=== PATIENT | male | born 2000 | race Caucasian/White ===

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

== ENCOUNTER → 2021-03-02 14:10 | Outpatient (CLI) | payer MEDICAID, SELFPAY ==
--- NOTE | 2021-03-02 14:17 | RAD_ITS ---
STUDY: X-RAY - RIGHT FOOT CLINICAL: Male, 20 years old. PAIN TECHNIQUE: 3 view(s) of the foot. COMPARISON: None. FINDINGS: Operative changes of the calcaneus with surgical implant. Normal visualized subtalar, talonavicular, calcaneocuboid, tarsal and tarsometatarsal articulations. Normal metatarsi. Normal metatarsophalangeal joint of the great toe. Normal tibial and fibular sesamoid bones. Normal interphalangeal joint of the great toe. Normal phalanges of the great toe. Normal second through fifth metatarsophalangeal joints. Normal interphalangeal joints and phalanges of the lesser toes. The soft tissue structures are unremarkable. RAD/Foot min 3 Views IMPRESSION: Operative changes of the calcaneus. No destructive bony process. Electronically Signed: Ramiro Wiseman MD ([place]) at 15:07 EDT , Service support ,
--- NOTE | 2021-03-02 14:17 | RAD_ITS ---
STUDY: X-RAY - RIGHT ANKLE REASON FOR EXAM: Male, 20 years old. PAIN TECHNIQUE: 3 view(s) of the ankle. COMPARISON: None. FINDINGS: Normal visualized distal tibia and fibula. Normal medial and lateral malleoli. Normal tibiotalar articulation and ankle mortise. Operative implant/changes of the calcaneus. The visualized subtalar, talonavicular, calcaneocuboid and tarsal articulations are normal. The soft tissue structures are unremarkable. RAD/Ankle min 3 Views IMPRESSION: Operative changes of the calcaneus. No destructive bony process. Electronically Signed: Ramiro Wiseman MD ([place]) at 16:34 EDT , Service support ,
--- NOTE | 2021-03-02 14:17 | RAD_ITS ---
STUDY: X-RAY - LEFT FOOT CLINICAL: Male, 20 years old. PAIN TECHNIQUE: 3 view(s) of the foot. COMPARISON: None. FINDINGS: Operative changes of the calcaneus with surgical implant. Normal visualized subtalar, talonavicular, calcaneocuboid, tarsal and tarsometatarsal articulations. Normal metatarsi. Normal metatarsophalangeal joint of the great toe. Normal tibial and fibular sesamoid bones. Normal interphalangeal joint of the great toe. Normal phalanges of the great toe. Normal second through fifth metatarsophalangeal joints. Normal interphalangeal joints and phalanges of the lesser toes. The soft tissue structures are unremarkable. RAD/Foot min 3 Views IMPRESSION: Operative changes of the calcaneus. No destructive bony process. Electronically Signed: Ramiro Wiseman MD ([place]) at 15:07 EDT , Service support ,
--- NOTE | 2021-03-02 14:17 | RAD_ITS ---
STUDY: X-RAY - LEFT ANKLE REASON FOR EXAM: Male, 20 years old. PAIN TECHNIQUE: 3 view(s) of the ankle. COMPARISON: None. FINDINGS: Normal visualized distal tibia and fibula. Normal medial and lateral malleoli. Normal tibiotalar articulation and ankle mortise. Operative implant/changes of the calcaneus. The visualized subtalar, talonavicular, calcaneocuboid and tarsal articulations are normal. The soft tissue structures are unremarkable. RAD/Ankle min 3 Views IMPRESSION: Operative changes of the calcaneus. No destructive bony process. Electronically Signed: Ramiro Wiseman MD ([facility]) at 15:31 EDT , Service support ,
[2021-03-02 18:07] LABS: Absolute Lymphocyte Count 2.52 X10^3/uL (0.83-4.51); Absolute Neutrophil Count 3.5 X10^3/uL (2.0-7.7); Basophil# 0.07 X10^3/uL; Eosinophil# 0.28 X10^3/uL; Hemoglobin 15.3 g/dL (13.0-16.5); Lymphocyte # 2.52 X10^3/ul (0.83-4.51); Lymphocyte % 36.3 % (19-41); Mean Corpuscular Hgb 26.9 pg (27.0-32.0); Mean Corpuscular Volume 79.1 fL (80-94); Mean Platelet Vol. 10.6 fl (6.2-12.0); Monocyte# 0.52 X10^3/uL; Monocyte% 7.5 % (0-10); NRBC Flagged by Analyzer 0 % (0-5); Neutrophil # 3.53 X10^3/uL (2.7-7.7); Neutrophil % 50.9 % (47-70); Platelet Count 244 K/mm3 (150-450); RBC Distribution Width CV 12.5 % (11.6-14.6); RBC Distribution Width SD 35.6 fl (35.1-43.9); Red Blood Count 5.69 M/mm3 (4.6-6.2); White Blood Count 6.9 K/mm3 (4.4-11.0)
[2021-03-02 18:26] LABS: Erythrocyte Sedimentation Rate < 1 mm/hr (0-20)
[2021-03-02 18:37] LABS: ALB/GLOB Ratio 1.5 RATIO (0.9-2.4); AST(SGOT) 13 U/L (15-37); Alanine Aminotransfer ALT/SGPT 22 U/L (16-61); Albumin, Serum 4.3 g/dL (3.2-5.0); Alkaline Phosphatase 107 U/L (45-117); Anion Gap 6 (5-15); BUN 20 mg/dL (7-18); BUN/Creat Ratio 18.7 RATIO (10-20); Calcium,Total 9.1 mg/dL (8.5-10.1); Chloride 104 mmol/L (98-107); Creatinine, Serum 1.07 mg/dL (0.70-1.30); EST Glomerular Filtration Rate 94 mL/min (>60); Est Glom Filt Rate - Afr Amer 114 mL/min (>60); Globulin 2.8 g/dL (2.2-4.2); Glucose 74 mg/dL (74-106); Potassium 3.8 mmol/L (3.5-5.1); Protein, Total 7.1 g/dL (6.4-8.2); Sodium Level 139 mmol/L (136-145); T4 Free Direct 1.05 ng/dL (0.76-1.46); Thyroid Stim Hormone (TSH) 2.14 uIU/mL (0.358-3.74)
== END ==
PROVIDERS: PCP Family Medicine; Referring Provider Family Medicine; Visit Provider Family Medicine
DX: R63.4 Abnormal weight loss (principal); M79.672 Pain in left foot; M79.671 Pain in right foot; M25.571 Pain in right ankle and joints of right foot; M25.572 Pain in left ankle and joints of left foot
CPT/HCPCS: 36415; 73610; 73630; 80053; 84439; 84443; 85025; 85652

== ENCOUNTER → 2021-07-12 | Outpatient (CLI) | payer MEDICAID, SELFPAY | END | disposition home or self-care (01) | LOC: LABSPEC 07-13 07:57 | PROVIDERS: PCP Family Medicine; Referring Provider Family Medicine; Visit Provider Family Medicine | DX: Z20.822 Contact with and (suspected) exposure to COVID-19 (principal) | CPT/HCPCS: 87635; U0005; U0003 ==

== ENCOUNTER 2021-10-10 12:26 | Outpatient (CLI) | payer MEDICAID, SELFPAY ==
[2021-10-10 15:15] LABS: Absolute Lymphocyte Count 1.86 X10^3/uL (0.83-4.51); Absolute Neutrophil Count 2.5 X10^3/uL (2.0-7.7); Basophil# 0.04 X10^3/uL; Basophil% 0.8 % (0-1); Eosinophil# 0.25 X10^3/uL; Eosinophils% 4.8 % (0-5); Hematocrit 44.2 % (40-54); Hemoglobin 14.9 g/dL (13.0-16.5); Lymphocyte # 1.86 X10^3/ul (0.83-4.51); Lymphocyte % 35.5 % (19-41); Mean Corp Hgb Conc 33.7 g/dL (32-36); Mean Corpuscular Hgb 26.1 pg (27.0-32.0); Mean Corpuscular Volume 77.4 fL (80-94); Mean Platelet Vol. 9.9 fl (6.2-12.0); Monocyte# 0.54 X10^3/uL; Monocyte% 10.3 % (0-10); NRBC Flagged by Analyzer 0 % (0-5); Neutrophil # 2.53 X10^3/uL (2.7-7.7); Neutrophil % 48.2 % (47-70); Platelet Count 259 K/mm3 (150-450); RBC Distribution Width CV 12.9 % (11.6-14.6); RBC Distribution Width SD 35.9 fl (35.1-43.9); Red Blood Count 5.71 M/mm3 (4.6-6.2); White Blood Count 5.2 K/mm3 (4.4-11.0)
[2021-10-10 15:40] LABS: ALB/GLOB Ratio 1.1 RATIO (0.9-2.4); AST(SGOT) 13 U/L (15-37); Alanine Aminotransfer ALT/SGPT 21 U/L (16-61); Albumin, Serum 3.9 g/dL (3.2-5.0); Alkaline Phosphatase 83 U/L (45-117); Amylase 46 U/L (25-115); Anion Gap 4 (5-15); BUN 16 mg/dL (7-18); Calcium,Total 9.1 mg/dL (8.5-10.1); Chloride 105 mmol/L (98-107); Creatinine, Serum 0.89 mg/dL (0.70-1.30); EST Glomerular Filtration Rate 116 mL/min (>60); Est Glom Filt Rate - Afr Amer 140 mL/min (>60); Globulin 3.4 g/dL (2.2-4.2); Glucose 88 mg/dL (74-106); Lipase 139 U/L (73-393); Potassium 4.2 mmol/L (3.5-5.1); Protein, Total 7.3 g/dL (6.4-8.2); Sodium Level 139 mmol/L (136-145)
== END 2021-10-10 23:59 | disposition home or self-care (01) ==
LOC: MTLAB 12:27
PROVIDERS: PCP Family Medicine; Referring Provider Registered Nurse; Visit Provider Registered Nurse
DX: R10.11 Right upper quadrant pain (principal); Q43.1 Hirschsprung's disease
CPT/HCPCS: 83690; 82150; 80053; 85025; 36415

== ENCOUNTER 2021-10-10 13:06 | Outpatient (CLI) | payer MEDICAID, SELFPAY ==
--- NOTE | 2021-10-10 13:19 | CT_ITS ---
INDICATION: Abdominal pain. History of colon resection. EXAMINATION: CT ABDOMEN AND PELVIS WITH CONTRAST - CT Abdomen And Pelvis W/ Contrast Injection TECHNIQUE: Helically acquired images were obtained of the abdomen and pelvis following IV contrast. A radiation dose optimization technique was used for this scan. IV Contrast dosage and agent: 100 mL ISOVUE-300 Oral contrast: Oral GASTROGRAFIN COMPARISON: None. FINDINGS: Lower thorax: Visualized lungs are clear. Liver: Normal morphology. No acute findings. Gallbladder: Normal appearance. No significant bile duct dilation. Spleen: Unremarkable. Pancreas: Fatty infiltration of the pancreatic parenchyma. No significant duct dilation. No acute findings. Adrenal glands: Unremarkable. Kidneys: No cystic or solid masses. No hydronephrosis. No acute findings. Bladder: Somewhat underdistended but no acute findings. GI tract: Status post hemicolectomy with ileocolonic anastomosis in the right hemiabdomen. The remaining large bowel is predominantly in the right hemiabdomen. There is nonspecific wall thickening involving a short segment of the remaining large bowel in the right hemiabdomen. There is no significant pericolonic inflammatory stranding. No significant bowel dilation to suggest obstruction. Peritoneum/mesentery/retroperitoneum: There are a mildly enlarged lymph nodes predominantly within the mid to lower abdominal mesentery. For example the largest in the right lower quadrant measures up to 1.4 cm in short axis. There is no free air or free fluid. Pelvis: No free air or free fluid. Vasculature: No acute findings. Bones/soft tissues: No acute fracture or subluxation. No destructive osseous lesions. Soft tissues are unremarkable. CT/Abdomen/Pelvis WITH Contrast IMPRESSION: 1. Postoperative changes consistent with prior colon resection with majority of the remaining large bowel in the right hemiabdomen. There is nonspecific wall thickening involving the bowel right hemiabdomen which could relate to infectious or inflammatory etiology in the appropriate clinical setting. 2. Mildly enlarged mesenteric lymph nodes could be reactive. Follow-up study in 6 months is recommended to assess for temporal stability. 3. No other acute findings. Electronically Signed: Connor Light, at 16:02 EDT ,
== END 2021-10-10 23:59 | disposition home or self-care (01) ==
PROVIDERS: PCP Family Medicine; Referring Provider Registered Nurse; Visit Provider Registered Nurse
DX: Q43.1 Hirschsprung's disease (principal); R10.11 Right upper quadrant pain
CPT/HCPCS: 36415; 74177; 80053; 82150; 83690; 85025; Q9967

== ENCOUNTER → 2022-02-08 | Outpatient (CLI) | payer BC, MEDICAID, SELFPAY ==
--- NOTE | 2022-02-08 13:52 | CT_ITS ---
STUDY: CT ABDOMEN AND PELVIS WITH CONTRAST REASON FOR EXAM: Male, 21 years old. Abdominal pain. History of prior colon resection. RADIATION DOSAGE (If Supplied By Facility): CTDIvol = ( 7.44 ) mGy, DLP = ( 270.53 ) mGycm TECHNIQUE: Transaxial images were obtained from the dome of the diaphragm to the symphysis pubis with oral contrast. Oral and amp;amp; IV Redi-CAT and amp;amp; 100mL Isovue-300 was administered. Sagittal and coronal images were reconstructed. Individualized dose optimization techniques were used for this CT. COMPARISON: Comparison is made with prior study of 10/10/2021. FINDINGS: The visualized lung bases are unremarkable. The visualized portions of the heart are within normal limits. Normal liver. Normal gallbladder and extrahepatic biliary system. Normal spleen. Normal pancreas. Normal bilateral adrenal glands. Normal right kidney. Normal left kidney. There is a small hiatal hernia. Large amount of residual fluid particles within the stomach. Normal small intestine. The patient is status post resection of the transverse colon and descending colon with anastomosis in the region of the sigmoid colon. Moderate amount of fecal material is seen in the rectosigmoid colon. The appendix is visualized and appears normal. Normal abdominal aorta. Normal inferior vena cava. Normal retroperitoneum. The urinary bladder is not adequately distended at this time. Normal abdominal wall. Normal osseous structures. CT/Abdomen/Pelvis WITH Contrast IMPRESSION: Stable examination. No acute abnormality is seen. Electronically Signed: Ruslan Cavanaugh MD at 14:36 EDT ,
== END | disposition home or self-care (01) ==
LOC: CT 13:49
PROVIDERS: PCP Family Medicine; Referring Provider Internal Medicine Gastroenterology; Visit Provider Internal Medicine Gastroenterology
DX: R10.11 Right upper quadrant pain (principal)
CPT/HCPCS: 74177

== ENCOUNTER → 2022-03-16 | Outpatient (CLI) | payer BC, MEDICAID, SELFPAY ==
[2022-03-16 16:39] LABS: Erythrocyte Sedimentation Rate < 1 mm/hr (0-20)
[2022-03-16 16:50] LABS: ALB/GLOB Ratio 1.4 RATIO (0.9-2.4); AST(SGOT) 17 U/L (15-37); Alanine Aminotransfer ALT/SGPT 30 U/L (16-61); Alkaline Phosphatase 88 U/L (45-117); Anion Gap 5 (5-15); BUN 18 mg/dL (7-18); BUN/Creat Ratio 19.3 RATIO (10-20); Calcium,Total 9.1 mg/dL (8.5-10.1); Chloride 107 mmol/L (98-107); Creatinine, Serum 0.93 mg/dL (0.70-1.30); EST Glomerular Filtration Rate 109 mL/min (>60); Est Glom Filt Rate - Afr Amer 132 mL/min (>60); Globulin 2.8 g/dL (2.2-4.2); Glucose 89 mg/dL (74-106); Potassium 3.6 mmol/L (3.5-5.1); Protein, Total 6.8 g/dL (6.4-8.2); Sodium Level 141 mmol/L (136-145)
[2022-03-16 16:53] LABS: Hemoglobin A1c 5.2 % (3.8-5.6)
[2022-03-16 19:53] LABS: CRP < 2.90 mg/L (0.0-3.0); LDH 169 U/L (87-241); Thyroid Stim Hormone (TSH) 1.84 uIU/mL (0.358-3.74)
[2022-03-20 09:08] LABS: Endomysial Antibody IgA Negative (Negative)
[2022-03-20 09:21] LABS: Immunoglobulin A 111 mg/dL (90-386); t-Transglutaminase IgA <2 U/mL (0-3)
[2022-03-22 16:09] LABS: Anti-Centromere B Ab <0.2 AI (0.0-0.9); Anti-Chromatin <0.2 AI (0.0-0.9); Anti-Jo <0.2 AI (0.0-0.9); Anti-Scleroderma-70 AB <0.2 AI (0.0-0.9); Beef <0.10 kU/L (Class 0); Corn <0.10 kU/L (Class 0); Egg, Whole <0.10 kU/L (Class 0); Milk (Cow) <0.10 kU/L (Class 0); Peanut <0.10 kU/L (Class 0); Pork 0.59 kU/L (Class II); RNP Ab <0.2 AI (0.0-0.9); SJOGREN'S Anti-SS-A test < 0.2 AI (0.0-0.9); SJOGREN'S Anti-SS-B test < 0.2 AI (0.0-0.9); Smith Ab <0.2 AI (0.0-0.9); Soybean <0.10 kU/L (Class 0); Wheat <0.10 kU/L (Class 0)
[2022-03-23 04:07] LABS: Albumin 4.2 g/dL (2.9-4.4); Alpha-1-Globulins 0.2 g/dL (0.0-0.4); Alpha-2-Globulins 0.6 g/dL (0.4-1.0); Cytoplasmic Ab (C-ANCA) <1:20 titer (Neg:<1:20); Gamma Globulin 0.7 g/dL (0.4-1.8); Immunoglobulin A 117 mg/dL (90-386); Immunoglobulin G 796 mg/dL (603-1613); Immunoglobulin M 70 mg/dL (20-172); PROEL- TOTAL PROTEIN 6.7 g/dL (6.0-8.5)
[2022-03-23 17:43] LABS: Anti-dsDNA Ab <1 IU/mL (0-9); Chocolate <0.10 kU/L (Class 0)
[2022-03-23 18:01] LABS: Immunoglobulin E 141 IU/mL (6-495); Perinuclear Ab (P-ANCA) <1:20 titer (Neg:<1:20)
== END | disposition home or self-care (01) ==
LOC: LAB 15:44
PROVIDERS: Registered Nurse; PCP Family Medicine; Referring Provider Internal Medicine Gastroenterology; Visit Provider Internal Medicine Gastroenterology
DX: K31.84 Gastroparesis (principal); Q43.1 Hirschsprung's disease
CPT/HCPCS: 36415; 80053; 82784; 82785; 83036; 83516; 83615; 84165; 84443; 85652; 86003; 86005; 86140; 86225; 86235; 86255; 86256; 86334

== ENCOUNTER → 2022-05-16 | Outpatient (CLI) | payer BC, MEDICAID, SELFPAY ==
--- NOTE | 2022-05-16 10:18 | NM_ITS ---
CLINICAL: 21-year-old male with history of Hirschsprung''s disease and chronic abdominal pain. SEMI-SOLID PHASE 99m Tc SULFUR COLLOID GASTRIC EMPTYING STUDY COMPARISON: None available FINDINGS: The patient was administered 1.1 mCi of 99m Tc sulfur colloid mixed with oatmeal and consumed per os. Image acquisitions in the anterior-posterior projections were obtained for 60 minutes. There is prompt visualization of the stomach. There is no gastroesophageal reflux identified. First order kinetics are maintained throughout the duration of the acquisitions. The T1/2 linear fit was calculated to be 64.62 minutes, (Normal: 12-56 minutes). NM/Gastric Emptying Study IMPRESSION: 1. ABNORMAL 99m Tc sulfur colloid semi-solid phase (oatmeal) gastric emptying imaging examination. A. There is delayed semi-solid phase gastric emptying compared to normal controls with maintained first order kinetics throughout all components of the examination. (Casey davenport al, J Nucl Med Tech 38: 186, 2010). Electronically Signed: Jose Alejandro Lay, at 21:03 EDT ,
== END | disposition home or self-care (01) ==
LOC: NM 10:17
PROVIDERS: PCP Family Medicine; Referring Provider Internal Medicine Gastroenterology; Visit Provider Internal Medicine Gastroenterology
DX: K31.84 Gastroparesis (principal); Q43.1 Hirschsprung's disease
CPT/HCPCS: 78264; A9541

== ENCOUNTER 2022-08-26 23:13 | Emergency (ER) | payer BC, MEDICAID, SELFPAY ==
[2022-08-26 23:14] VITALS: BP 125/77; PULSE 68; RESP 15; TEMP 36.4; O2SAT 98; BMI 22.1
--- NOTE | 2022-08-26 23:43 | EX.ED.UPPERE ---
HPI History of Present Illness Chief Complaint: Upper Extremity Injury Detail of Chief Complaint: Bleeding from left ring finger Informant: patient Narrative Narrative: Patient presents the emergency department with complaint of bleeding from his left ring finger. Patient states that he had what he thought was a blood blister on his pad of the left index finger. Patient states that the bump initially started about a month ago. His mother told him it was a blood blister. He denies any trauma to the finger. 3 days ago it started bleeding in the shower. Tonight he cannot get the bleeding to stop. Patient has history of Hirschsprung's. He denies bleeding disorders. [facility] Medical History (Updated 08/26/22 @ 23:[address] Angelica Campos, DO) Abdominal pain, right upper quadrant Blepharitis Contact dermatitis due to plant Weight loss Home Medications escitalopram oxalate 10 mg tablet (Lexapro) 10 mg PO DAILY 10/24/21 [History Last Taken Unknown] prednisone 10 mg tablet 10 mg PO DAILY #30 tabs 02/07/22 [Rx Last Taken Unknown] Allergy/AdvReac Type Severity Reaction Status Date / Time No Known Allergies Allergy Verified 08/26/22 23:17 Family History Mother Thyroid cancer Father Hypertension Diabetes Hyperlipidemia Sleep apnea Surgical History H/O foot surgery History of bowel resection Social History Smoking Status: Never smoker alcohol intake: never substance use type: does not use ROS ROS ED Review of Systems ROS Unobtainable: other Constitutional Constitutional ED: Reports lethargy; Denies chills, fever(s), sweats or weight loss Eyes Eyes: Denies blurry vision, change in vision or diplopia ENT ENT ED: Denies rhinorrhea or sore throat Cardiovascular Cardiovascular: Denies chest pain, orthopnea or racing heartbeat Respiratory/Chest Respiratory/Chest: Denies cough, dyspnea, dyspnea on exertion, orthopnea or sputum Gastrointestinal Gastrointestinal: Denies abdominal pain, diarrhea, nausea or vomiting Genitourinary Genitourinary ED: Denies dysuria, hematuria or urinary frequency Musculoskeletal Musculoskeletal: Denies arthralgias, back pain, myalgias or neck pain Integumentary Reports other Details: Bleeding from lesion on right ring finger ; Denies abscess, Abrasions or rash Neurologic Neurologic: Denies headache(s) or weakness Psychiatric Psychiatric: Denies anxiety, depression or suicidal thoughts Endocrine Endocrinology: Denies polydipsia, polyphagia or polyuria Hematologic/Lymphatic Hematologic/Lymphatic: Denies easy bleeding, easy bruising or lymphadenopathy Allergic/Immunologic Allergic/Immunologic ED: Denies mouth swelling, tongue swelling or urticaria EXAM Physical Exam Const Vital Signs: 08/26/22 23:14 Temperature 97.6 F L Temperature Source Temporal Pulse Rate 68 Respiratory Rate 15 Blood Pressure 125/77 H Blood Pressure Mean 93 Pulse Ox 98 Oxygen Delivery Method Room Air Positive well nourished and well developed General Appearance ED: well developed and NAD HEENT Reports TM's clear and moist mucous membranes normocephalic and atraumatic; Negative for trauma or tenderness Tympanic Membrane ED: Yes TM's clear Eyes PERRL and EOMs intact bilaterally General Eye ED: Negative for pale conjunctiva or scleral icterus Neck no lymphadenopathy, supple and no JVD General: Negative for tenderness Chest Wall inspection of chest normal and palpation of chest normal Chest: Negative for tenderness Resp normal respiratory effort and clear to auscultation bilaterally Effort and Inspection: Negative for respiratory distress or pain with movement Auscultation: Negative for rhonchi, wheezes or diminished lung sounds Cardio regular rate, regular rhythm, S1 normal heart sound, S2 normal heart sound and no murmurs Peripheral Pulses: pulses 2+ throughout GI normal to inspection, nondistended, normoactive bowel sounds, soft to palpation, non-tender, non-distended and no masses Back/Spine no CVA tenderness and no thoracic nor lumbar tenderness Extremity Extremity Narrative: Right ring finger-patient has a small excoriated lesion on the volar pad of the ring finger measuring approximately 5 mm in diameter with some venous oozing of blood from this. No masses palpated. There is no bony tenderness. No ecchymosis or bruising noted. General Extremety ED: Negative for edema General Extremity: Negative for edema Neuro oriented x3, CN's II-XII intact bilaterally, no sensory deficits noted and gait normal Sensorium / Orientation: awake, alert, oriented to person, oriented to place and oriented to time Motor Exam: strength 5/5 throughout and strength abnormal Psych mental status grossly normal Skin no rashes or lesions noted and no wounds MDM MDM MDM Narrative Medical decision making narrative: I was able to squeeze the size of the finger and obtain good hemostasis at the wound site and using silver nitrate cautery stick I was able to cauterize the wound and obtain good hemostasis. Clean dressing will be applied. Patient will be referred to orthopedics for follow-up within next 7 to 10 days if the lesion does not resolve or he continues to have issues with it. Discharge Plan Triage Chief Complaint: Upper Extremity Injury ED Provider: Angelica Campos Dx/Rx/DC Orders Clinical Impression: Abrasion, Blister Instructions: ED Abrasion Prescriptions: No Action escitalopram oxalate [Lexapro] 10 mg tablet 10 mg PO DAILY prednisone 10 mg tablet 10 mg PO DAILY Qty: 30 0RF Rx Instructions: 4 tablets daily for 3 days, then 3 tablets daily for 3 days, then 2 tablets daily for 3 days, then 1 tablet daily for 3 days Primary Care Provider: Rupesh Esqueda Referrals: Rupesh Esqueda MD [Primary Care Provider] - Miko Toscano DO [Med Staff - Active Staff] - 1-2 Weeks Disposition Disposition: Home, Self Care
== END 2022-08-27 00:13 | disposition home or self-care (01) ==
LOC: ED 08-27 00:07
PROVIDERS: Emergency Provider Emergency Medicine; PCP Family Medicine; Visit Provider Emergency Medicine
DX: S60.414A Abrasion of right ring finger, initial encounter (principal); S60.424A Blister (nonthermal) of right ring finger, initial encounter; X58.XXXA Exposure to other specified factors, initial encounter; Q43.1 Hirschsprung's disease
CPT/HCPCS: 99282